=== PATIENT | female | born 1930 | race Caucasian/White ===

== ENCOUNTER 2016-12-03 13:30 | Inpatient (IN) | payer MEDICARE, OTHER ==
[~2016-12-03] VITALS: Ht 167.6 cm; Wt 59.3 kg
--- NOTE | ~2016-12-03 | HP ---
PATIENT'S NAME: TAVARES CLEMONS [facility] AGE: 86 Y [address] ROOM: [id number] [place], [place] [address] LOCATION: GPCU ADMIT DATE: 12/03/2016 History & Physical DISCHARGE DATE: FAMILY PHYSICIAN: PHYSICIAN, UNKNOWN ATTENDING PHYSICIAN: Shane Gaspar DATE OF SERVICE: CHIEF COMPLAINT: Near syncope in the setting of wide-complex tachycardia. HISTORY OF PRESENTING ILLNESS: This 86-year-old white female with known coronary artery disease, status post coronary artery bypass grafting in the distant past was transferred to [facility] from [place] after a near syncopal event, which occurred while she was at cardiac rehab. Briefly, she had actually been transported to the [facility] earlier this morning with an episode of epistaxis. She decided to call the ambulance because she had a syncopal event last fall under similar circumstances. On her arrival there, she was seen and evaluated by Dr. Oh and underwent nasal cautery with good results. She did not have any residual bleeding afterwards and subsequently went on to cardiac rehab. She states she engaged in some fairly intense exercise and did notice that she was "working hard." She did not feel particularly bad, but was asked to get off of the machine by an nurses assistant apparently. At some point, she had a near syncopal event, but she does not think that she "passed out." She does not actually recall the event, but does not think that it was significant. Subsequently, she was found to have cardiac dysrhythmia characterized by wide complex tachycardia. I do not have those tracings for review. She did not receive any specific intervention for it and it did subsequently resolve during her emergency room evaluation there. Dr. Feliz, coat hanger shaper machine operator was contacted, and it was requested that she be transferred here for definitive evaluation and management. On her arrival, she reports feeling "good." She indicates she does not feel that she needs to be hospitalized. She denies headaches, dizziness, or lightheadedness. She denies chest pain or significant shortness of breath. She has had some palpitations intermittently, but denies that now. She denies any abdominal pain. She has not eaten yet today and reports feeling mildly hungry. She has been stooling regularly, denies any urinary complaints, no dysuria, frequency, urgency, no hematuria, no numbness, tingling, or weakness in her extremities, or any other associated physical or constitutional complaints. ALLERGIES: PATIENT'S NAME: TAVARES CLEMONS [facility] AGE: 86 Y [address] ROOM: [id number] [place], [place] [address] [facility] AD[facility] DATE: 12/03/2016 History & Physical DISCHARGE DATE: FAMILY PHYSICIAN: PHYSICIAN, UNKNOWN ATTENDING PHYSICIAN: Shane Gaspar. ILLNESSES: 1. Coronary artery disease, status post coronary artery bypass grafting in 2007 in [place]. 2. Essential hypertension. 3. Hyperlipidemia. 4. Mild age-related cognitive impairment. 5. Chronic constipation. 6. Osteoporosis. 7. Recurrent epistaxis. CURRENT MEDICATIONS: 1. Aspirin 162 mg p.o. b.i.d. 2. Zebeta 5 mg a half-tab p.o. b.i.d. 3. Calcium carbonate 1200 mg p.o. daily. 4. Plavix 75 mg p.o. daily. 5. Aricept 10 mg p.o. daily. 6. Imdur 30 mg p.o. daily. 7. Centrum Silver daily. 8. Nitrostat p.r.n. 9. Protonix 40 mg p.o. daily. 10. Rosuvastatin 20 mg p.o. q.h.s. 11. PreserVision AREDS 1 cap p.o. daily. 12. Benefiber 1 packet p.o. daily. 13. Reclast infusion annually. FAMILY HISTORY: Significant for coronary artery disease in her father who at the age of 58. SOCIAL HISTORY: She is and lives in [place]. She is a nonsmoker and there is no significant history of alcohol use. REVIEW OF SYSTEMS: As per HPI. All other organ systems reviewed and are negative. OBJECTIVE: VITAL SIGNS: Temperature 98.1, pulse 72, respirations 20, blood pressure 119/112 (151/82), and O2 sat 94% on room air. Weight is 134 pounds. GENERAL: She is frail, not ill-appearing, very pleasant, cooperative, lying in bed, in no acute distress. She is alert and oriented x2 (not oriented to time). SKIN: Supple, pale, warm, and dry. No obvious rashes. PATIENT'S NAME: TAVARES CLEMONS [facility] AGE: 86 Y [address] ROOM: [id number] [place] [address] [facility] AD[facility] DATE: 12/03/2016 History & Physical DISCHARGE DATE: FAMILY PHYSICIAN: PHYSICIAN, UNKNOWN ATTENDING PHYSICIAN: Shane Gaspar HEENT: Otherwise, normocephalic. Sclerae nonicteric. Pupils equal, round, and reactive to light and accommodation. Extraocular movements appear intact. Nasal turbinates normal in appearance. There is some dried blood evident at the left nares. Oropharynx is clear. Mucous membranes are pink and moist. NECK: Supple. Plethoric. No masses. No thyromegaly. No JVD. CHEST: Chest wall is symmetrical. HEART: Regular with occasional extrasystoles. There is a grade 1 to 2/6 systolic ejection murmur. LUNGS: Diminished at the bases. No crackles or wheezes are heard. ABDOMEN: Soft, protuberant, nontender. Bowel sounds present. No mass or hepatosplenomegaly. AND RECTAL: Not done. EXTREMITIES: Display no significant clubbing, cyanosis, edema. NEUROLOGICAL: Mentation is little slowed. There are no focal deficits. LABORATORY AND X-RAY DATA: CBC showed a white blood cell count 9.4, hemoglobin is 13.7, hematocrit 43, and platelets 145. Magnesium was 2.3. An INR was 1.1. Chemistries revealed a BUN and creatinine of 16 and 0.67 respectively; sodium and potassium 142 and 3.9; chloride and CO2 are 99 and 23; calcium is 9.7; AST and ALT 38 and 29; bilirubin 0.88. A total CK was elevated at 159, troponin was less than 0.06, CK-MB 3.8. ASSESSMENT AND PLAN: 1. Near syncope. Suspect cardiogenic etiology. The patient will be admitted for observation (see below). We will monitor on telemetry and provide some supportive cares. We will keep her n.p.o. at least until Cardiology evaluation. 2. Wide-complex tachycardia. As described above, I do not have the strips for review, but this sounds like a stable ventricular tachycardia by Dr. Oh's description. I did discuss the case with Dr. Trini. We will monitor on telemetry and manage conservatively. We will hold off on any additional antiarrhythmic therapy, but plan to continue with beta-felipe therapy for now and monitor. She is otherwise asymptomatic. 3. Essential hypertension, appears to be adequately controlled, but a little labile. We will monitor the trend and make adjustments if necessary. 4. Coronary artery disease, status post coronary artery bypass grafting. Otherwise, clinically stable and asymptomatic. Plan to continue with medical therapy including aspirin, beta-felipe therapy, and statin therapy. 5. Epistaxis, status post cautery, resolved, plan to continue with aspirin and Plavix therapy for now and monitor. We will hold off on any additional anticoagulant therapy unless deemed necessary by Cardiology. 6. Osteoarthritis, generalized, encourage mobilization once she is deemed to be stable. No nonsteroidal antiinflammatory drug therapy. PATIENT'S NAME: TAVARES CLEMONS [facility] AGE: 86 Y [address] ROOM: [place] [address] [facility] ADMIT DATE: 12/03/2016 History & Physical DISCHARGE DATE: FAMILY PHYSICIAN: PHYSICIAN, UNKNOWN ATTENDING PHYSICIAN: Shane Gaspar 7. Constipation, chronic, we will continue her home regimen. 8. Deep venous thrombosis prophylaxis, we will utilize pneumatic compression devices, but hold off on heparin or Lovenox for now. MD BETHEL FOREMAN/radha /[id number] D: [id number] T: [id number] HISTORY & PHYSICAL
--- NOTE | ~2016-12-03 | DS ---
PATIENT'S NAME: TAVARES CLEMONS [facility] AGE: 86 Y [address] ROOM: [id number] [place], [place] [address] LOCATION: GPCU ADMIT DATE: 12/05/2016 Discharge Summary DISCHARGE DATE: 12/08/2016 FAMILY PHYSICIAN: Sunny Oh MD ATTENDING PHYSICIAN: Shane Gaspar FINAL DIAGNOSES: 1. Near syncope. 2. Acute cerebrovascular accident with aphasia, status post tPA infusion. 3. Wide-complex tachycardia. 4. Essential hypertension. 5. Coronary artery disease. 6. Epistaxis. 7. Chronic ascending aortic dissection. HISTORY OF PRESENT ILLNESS: Please see the history and physical dictated by Dr. Gaspar for details of admission. The patient had transferred from [place] after having a near-syncopal episode and was noted to have a wide-complex tachycardia associated with activity. LABORATORY DATA: On admission, sodium 141, discharge 142; potassium on admission 3.5, discharge 3.8; BUN on admission 14, discharge 14; creatinine on admission 0.7, discharge 0.7; magnesium at discharge was 2.3. Her cholesterol was 111, HDL 62, LDL 27, and triglycerides 112. Cardiac enzymes were normal. Pro-BNP was 1938. TSH was 4.5. Her CBC on the white blood cell count 9.5, hemoglobin 12.3, hematocrit 39, and platelet count 146. PTT 26, pro- time 10.7, INR 1.02. RADIOLOGY DATA: A coronary CT was done that showed that the lateral aspect of the root of the aorta measured 3.[address] scan of the head done on December [address] done for acute aphasia showed advanced white matter changes. Old left parietal infarct. No acute changes. There is a new focus of low density in the left frontal horn just peripheral to the head of the caudate nucleus. CT scan done on December 06 after tPA showed stable exam with no evidence of acute ischemia. CARDIOVASCULAR DATA: An echocardiogram done on admission showed her EF to be 55%. She had mild concentric left ventricular hypertrophy. She had mild aortic stenosis with a peak velocity of 2.5 m/sec. The valve area was calculated to be 1.17 cm2. The proximal ascending aortic appeared dilated. HOSPITAL COURSE: The patient was accepted in transfer from [place] after having a near syncope episode at the time of therapy then she was noted to have a wide-complex tachycardia. She was transferred to [facility]. There was a Cardiology consult obtained and echocardiogram was ordered. She PATIENT'S NAME: TAVARES CLEMONS [facility] AGE: 86 Y [address] ROOM: [id number] [place], [place] [address] LOCATION: GPCU ADMIT DATE: 12/05/2016 Discharge Summary DISCHARGE DATE: 12/08/2016 FAMILY PHYSICIAN: Sunny Oh MD ATTENDING PHYSICIAN: Shane Gaspar was seen in consultation by Dr. Feliz. Dr. Feliz felt that at this time that we did not need to pursue a heart catheterization and we could do medical management as the wide-complex tachycardia was associated with peak exercise. Adjustments were made in her medications as Zebeta was stopped and she was started on lisinopril. The echocardiogram did return with an area that appeared in the ascending order to be dilated. Decision was made to proceed with a cardiac CT for further evaluation. During this time, she did work with PT and OT. The cardiac CT did show an area that was concerning for either an aneurysm or chronic dissection. At that time, Dr. Maharaj was asked to see her. The morning of December 05 however she had an acute onset of aphasia. Rapid Response was called and then a stroke alert was called. A stat noncontrasted CT scan was obtained and Dr. Mendoza was consulted. He did feel that she was a candidate for tPA. Please see his consult for details. Stat laboratories obtained. The CT scan returned without any abnormality. She has moved to the ICU for tPA. Post tPA infusion, she did have epistaxis, she had a similar episode prior to admission. Dr. Lloyd Medrano was consulted. He did see her, he did cauterize her nose, and did pack it at the bedside. We did use Afrin. She has followed the routine post tPA orders and did quite well. At 24 hours, her swallowing was evaluated, it was felt she was stable to swallow. A CT scan was done, which did not show any evidence of hemorrhage. The therapist did work with her. Adjustments were made in her blood pressure. We did resume her Plavix at [address] Maharaj did see her in consultation regarding the chronic aortic dissection. He did explain the risks and benefits of the procedure. She opted to not proceed with the surgery. The morning of the , it was felt that she was stable for discharge and she is able to be discharged to home. DISCHARGE INSTRUCTIONS: Follow a cardiac diet. She is to follow up with Dr. Oh, her primary care provider in 3-5 days. She is to see Dr. Lloyd Medrano Ear, Nose, and Throat doctor on December 16 at 10:45 in the morning. She has no driving, she is not to blow her nose or pick her nose for a week. MEDICATIONS: 1. Crestor 20 mg at bedtime. 2. Imdur ER 30 mg daily. 3. Nitro 0.4 mg sublingual p.r.n. chest pain. She could repeat for a total of 3 doses. 4. Zoledronic acid/Reclast 5 mg/100 mL solution yearly. 5. Multivitamin daily. 6. Vitamin PreserVision 1 caplet daily. 7. Plavix 75 mg daily. 8. Protonix 40 mg daily. 9. Aricept 10 mg daily. 10. Colace 100 mg twice daily. 11. Lisinopril 5 mg daily. PATIENT'S NAME: TAVARES CLEMONS [facility] AGE: 86 Y [address] ROOM: [place] [address] LOCATION: GPCU ADMIT DATE: 12/05/2016 Discharge Summary DISCHARGE DATE: 12/08/2016 FAMILY PHYSICIAN: Sunny Oh MD ATTENDING PHYSICIAN: Shane Gaspar 12. Metoprolol 50 mg twice daily. 13. Bactroban topically to her nasal passage 3 times daily. 14. Nasal saline spray to each nostril every 2 hours as needed while awake. PROGNOSIS: Overall, prognosis at discharge is fair. This is discussed with the patient and the patient voiced understanding. A message has been left with her primary care provider to discuss this hospitalization. SEJAL WERNER MD LAW/modl /[id number] d: 12/09/16 0045 t: 12/09/16 1451, DISCHARGE SUMMARY
--- NOTE | ~2016-12-03 | CON ---
PATIENT'S NAME: DEONTE [facility] AGE: 86 Y [address] ROOM: [place] [address] LOCATION: GPCU ADMIT DATE: 12/05/2016 Consultation DISCHARGE DATE: FAMILY PHYSICIAN: VANCE ZALDIVAR MD ATTENDING PHYSICIAN: Shane Gaspar REFERRING PHYSICIAN: BROOKLYNN PACHECO MD HISTORY OF PRESENT ILLNESS: This pleasant 86-year-old lady is referred for rehab evaluation, admitted on 12/03/2016 with a near syncopal episode while she was on cardiac rehab. She has extensive history of cardiac or coronary artery disease, status post CABG in the distant past. She was for a short time aphasic, and was given blood thinner. She did improve afterwards; however, she developed a marked left nasal bleed. It is now packed and under control. PAST MEDICAL HISTORY: She has also 1. History of hypertension. 2. Dyslipidemia. 3. Osteoporosis. 4. Repeated epistaxis in the past. PHYSICAL EXAMINATION: NEUROLOGICAL: She is alert, and needs few cues to orient well. Speech is clear and not wet. She can see well. No headaches. She denied any double vision. Good bowel and bladder control. Neurologically intact. Voice is clear and not wet. She, however, has good tongue and soft palate movement and symmetrical. She can move all four. However, she is a little bit not so able to orient to time and person. She needs cuing to orient well. Deep tendon reflexes are present and equal throughout. VITAL SIGNS: Blood pressure was 147/73, temperature was 98.5, pulse was 62, and respirations were 14. She is 5 feet 6 inches and weighs 59.7 kg. MEDICATIONS: She is on the following medications. 1. Tylenol. 2. Labetalol hydrochloride. 3. Lisinopril. 4. Multivitamin. 5. Aricept. 6. NaCl 0.9%. 7. Protonix. 8. Imdur. [facility] AGE: 86 Y [address] ROOM: [place] [address] LOCATION: GPCU ADMIT DATE: 12/05/2016 Consultation DISCHARGE DATE: FAMILY PHYSICIAN: VANCE ZALDIVAR MD ATTENDING PHYSICIAN: Shane Gaspar 9. Crestor. 10. Nitroglycerin. 11. Alteplase. 12. Afrin. 13. Plavix. 14. Benefiber. ASSESSMENT AND PLAN: She is able at the present time, to communicate well. Her voice is clear and not wet. At the present time, I will initiate PT, OT, and Speech. I feel that she can go on an outpatient basis. I did advise her not to drive until she is evaluated. I will follow on her when she is discharged, in about maybe two weeks after discharge. Thank you for this referral. All the above was explained to her in detail and to her daughter. They verbalized understanding and agreement. RADHA DIAZ MD WMS/modl /[id number] d: 12/05/16 2213 t: 12/15/16 1539, CONSULTATION REPORT
--- NOTE | ~2016-12-03 | OR ---
PATIENT'S NAME: TAVARES CLEMONS [facility] AGE: 86 Y [address] ROOM: [id number] [place], [place] [address] LOCATION: GPCU ADMIT DATE: 12/05/2016 OR/Procedure Report DISCHARGE DATE: FAMILY PHYSICIAN: VANCE ZALDIVAR MD ATTENDING PHYSICIAN: Shane Gaspar SURGEON: Arin Sheridan MD AVIATION PROJECT MANAGER: DATE OF PROCEDURE: 12/05/2016 CT ANGIOGRAM REPORT INDICATIONS FOR STUDY: The patient with coronary artery disease, status post coronary artery bypass graft. Left internal mammary artery graft could not be engaged during cardiac catheterization. The patient presently admitted with episode of ventricular tachycardia. PROCEDURE: The procedure was described to the patient and informed consent was obtained. Calcium scoring was performed which showed total Agatston score of 5023. The Agatston score in left main coronary artery was 75, right coronary artery 2603, left anterior descending artery 1674 and circumflex coronary artery 651. Subsequently CT angiogram was performed. FINDINGS: The left main coronary artery arises normally from the left coronary cusp. It has mild calcification. No significant stenosis was noted. It gives rise to left anterior descending artery and left circumflex coronary arteries. Left anterior descending artery is a moderate-sized vessel. Diffuse heavy calcification was noted in the vessel. Left anterior descending artery appears to be occluded in the mid segment. Left circumflex coronary artery is a moderate-sized vessel and diffusely calcified. It appears occluded in the mid segment. The right coronary artery is also heavily calcified and appears occluded in the mid segment. Saphenous vein graft is noted originating from the aorta to the posterior descending artery. It is ectatic. The left internal mammary graft appears to be patent and appears to be attached to the diagonal branch. The proximal part in the origin of left internal mammary artery graft from the subclavian artery was not imaged and hence could not be commented on. Also a saccular aneurysm is noted near the aortic root measuring 2.1 x 3.8 cm and the diameter of the neck measures about 9.3 mm. It has a filling defect likely due to thrombus. IMPRESSION: 1. 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 2. Three-vessel coronary artery disease with calcified coronary arteries and occlusion in the mid left anterior descending artery, mid circumflex coronary and mid right coronary artery. PATIENT'S NAME: TAVARES CLEMONS [facility] AGE: 86 Y [address] ROOM: [place] [address] [facility]: 12/05/2016 OR/Procedure Report DISCHARGE DATE: FAMILY PHYSICIAN: VANCE ZALDIVAR MD ATTENDING PHYSICIAN: Shane Gaspar 3. Patent saphenous vein graft to the posterior descending artery. The graft is ectatic. 4. Left intermammary artery graft to the diagonal branch appears patent. The origin in the subclavian artery and the proximal segment was not visualized. Clinical correlation is recommended. The findings were discussed with Dr. Bonner and Dr. Maharaj. MD DENIA STEINBERG/modl /[id number] d: 12/05/162230 t: 12/24/161940, OPERATIVE SUMMARY
--- NOTE | ~2016-12-03 | CON ---
[facility]GE[facility] 86 Y [address] ROOM: [place] [address] LOCATION: GICU ADMIT DATE: 12/05/2016 Consultation DISCHARGE DATE: FAMILY PHYSICIAN: VANCE OH MD ATTENDING PHYSICIAN: Shane Gaspar REFERRING PHYSICIAN: BROOKLYNN PACHECO MD REFERRING PHYSICIAN: Nena Bonner MD. CHIEF COMPLAINT: Epistaxis. HISTORY OF PRESENT ILLNESS: The patient is a pleasant 86-year-old female, who was admitted with a history of coronary artery disease and diagnosis of wide-complex tachycardia. She unfortunately suffered a stroke and was given tPA today, and thereafter began to have nosebleeds from the left side, for which ENT is consulted. The patient states that she has had a history of recurrent nosebleeds from the left side for quite a period time and had this cauterized both by ENT and her primary care multiple times including most recently 2 days ago. She has never had any issues on the right. She has no other ENT complaints at this time. PAST MEDICAL HISTORY: Coronary artery disease, essential hypertension, hyperlipidemia, chronic constipation, osteoporosis, recurrent epistaxis. CURRENT MEDICATIONS: At home, personally reviewed and available in the chart as were her inpatient medications. FAMILY HISTORY: Negative for chronic ear, nose, and throat conditions. SOCIAL HISTORY: She is , nonsmoker, and she does not use significant amounts of alcohol. REVIEW OF SYSTEMS: A 10-point review of systems was negative except as per the HPI. PHYSICAL EXAMINATION: VITAL SIGNS: Temperature 97.9, pulse 60, respirations 14, blood pressure 164/88, 94% on 2 L of nasal cannula oxygen. GENERAL: On exam, she is well appearing, no acute distress. Alert and oriented. Somewhat forgetful. Mood and affect are otherwise appropriate. PATIENT'S NAME: DEONTE [facility] AGE: 86 Y [address] ROOM: [place] [address] LOCATION: [facility] ADMIT DATE: 12/05/2016 Consultation DISCHARGE DATE: FAMILY PHYSICIAN: VANCE OH MD ATTENDING PHYSICIAN: Shane Gaspar EARS: Auditory canals are clear. TMs unremarkable. NOSE: External nose unremarkable. Right nasal cavity is clean without epistaxis. On the left side, there is some clotted blood, which after sucking this out reveals an area of riccardo venous type bleeding from a focal spot on the anterior septum. There is evidence of recent cautery around this. There are no other areas of epistaxis apparent in the nose. ORAL CAVITY: Mucous membranes moist. Tongue midline and mobile. Oropharynx shows some blood staining. NECK: No palpable lymphadenopathy or masses. Thyroid is not palpable. CONTROL OF EPISTAXIS: After discussing the plan with the patient and she provided informed consent, Afrin was applied topically to the left nasal septum, and thereafter a Merocel sponge was cut to shape and placed into the left nasal cavity and inflated with Afrin. This provided excellent control of her epistaxis without bleeding through. ASSESSMENT: Epistaxis, left side, status post tPA use. PLAN: We will leave the pack in place through the weekend and remove this on Thursday. We did discuss prior to pack placement, the use of topical medications versus cauterization. She elected for the pack placement. She was given nasal saline. Continued on her Afrin and humidification we added to her oxygen. MD GIO DONALD/gretchenl /[id number] CC: Vance Oh MD d: 12/05/16 2336 t: 12/18/16 0720, CONSULTATION REPORT
--- NOTE | ~2016-12-03 | CON ---
PATIENT'S NAME: DEONTE [facility] AGE: 86 Y [address] ROOM: [address] [place] [id number] LOCATION: GPCU ADMIT DATE: 12/03/2016 Consultation DISCHARGE DATE: FAMILY PHYSICIAN: PHYSICIAN, UNKNOWN ATTENDING PHYSICIAN: Shane Gaspar DATE OF CONSULTATION: 12/03/2016 REFERRING PHYSICIAN: ALMA PACHECO MD REFERRING PHYSICIAN: Shane Gaspar MD REASON FOR CARDIOLOGY CONSULT: Asymptomatic ventricular tachycardia. HISTORY OF PRESENT ILLNESS: This is an 86-year-old female who was exercising with cardiac rehab today when she developed a wide-complex tachycardia on telemetry during the end of her exercise regimen. She was asymptomatic other than her already complaints of shortness of breath which is normal with her exercise. She denied chest pain, dizziness, presyncope, syncope, nausea, vomiting, or palpitations. Overall, she appears to be in no acute distress, and she states she is "unsure if anything is wrong with her." She has a previous history which includes coronary artery disease with coronary artery bypass grafting as well as hypertension and hyperlipidemia. At the time of this consult, she is resting comfortably in bed. PAST MEDICAL HISTORY: 1. Coronary artery disease with a history of coronary artery bypass grafting in 2007. 2. Hypertension. 3. Hyperlipidemia. 4. Osteoporosis. 5. Mild cognitive impairment. PAST SURGICAL HISTORY: 1. Coronary artery bypass grafting in 2007. 2. Left tibial plateau fracture. 3. Left hip hemiarthroplasty. FAMILY HISTORY: The patient's father due to a myocardial infarction. Her mother due to a stroke. She does have a brother with a history of cardiac disease. PATIENT'S NAME: DEONTE [facility] AGE: 86 Y [address] ROOM: [id number] [place], [place] [address] LOCATION: GPCU ADMIT DATE: 12/03/2016 Consultation DISCHARGE DATE: FAMILY PHYSICIAN: PHYSICIAN, UNKNOWN ATTENDING PHYSICIAN: Shane Gaspar SOCIAL HISTORY: The patient denies ever using tobacco. She also denies alcohol or illicit drug use. CURRENT MEDICATIONS: 1. Crestor 20 mg p.o. daily in the evening. 2. Zebeta 2.5 mg p.o. twice daily. MEDICATION ALLERGIES: Meclizine. REVIEW OF SYSTEMS: Pertinent positive review of systems listed in the HPI. All other review of systems evaluated and negative. PHYSICAL EXAMINATION: VITAL SIGNS: Temperature 97.9, pulse 65, respirations 20, blood pressure 180/86, and O2 saturation 92% on 2 L nasal cannula. The patient weighs 61.2 kg. SKIN: [place], warm, and dry. EYES: Sclerae are clear. No xanthelasma. ENT: Oral mucosa is pink and moist. No jugular venous distention or carotid bruits. CHEST: Respirations are even and unlabored. Lung sounds are clear to auscultation. HEART: Regular rate and rhythm. Does have the presence of a 2/6 systolic murmur. ABDOMEN: Soft and nontender. MUSCULOSKELETAL: Gait is normal. EXTREMITIES: Peripheral pulses palpable. No clubbing, cyanosis, or edema. PSYCHIATRIC: Alert and oriented. Mood and affect are appropriate. IMPRESSION AND PLAN: Per Dr. Alma Pacheco. 1. Asymptomatic ventricular tachycardia. Once again, this was in the setting of cardiac rehab. She has no current signs and symptoms of acute coronary syndrome or decompensation. We will check an echocardiogram to fully evaluate ejection fraction as well as look for wall motion and valvular abnormalities. We will also check an EKG and review BMP and magnesium for electrolyte values. 2. Coronary artery disease with a history of coronary artery bypass grafting. Once again, no complaints of angina. Recent cath by levi Aguirre: medical therapy. 3. Hypertension. 4. Hyperlipidemia. Again, this is an 86-year-old female who had an episode of ventricular PATIENT'S NAME: TAVARES CLEMONS Cosmo [facility] AGE: 86 Y [address] ROOM: [id number] [place] [id number] [facility] ADMIT DATE: 12/03/2016 Consultation DISCHARGE DATE: FAMILY PHYSICIAN: PHYSICIAN, UNKNOWN ATTENDING PHYSICIAN: Shane Gaspar tachycardia during the peak and end portions of her cardiac rehab exercise. She had no chest pain, shortness of breath, palpitations, or dizziness. Her EKG shows sinus rhythm with a left bundle-branch block, and her electrolytes are stable. We will review her echocardiogram, but overall we see no symptoms of acute CHF decompensation or new angina symptoms. We will continue to monitor her on telemetry and rule out acute coronary syndrome. We will continue to monitor, evaluate, and treat as appropriate. Thank you for this consult. Thank you for allowing [facility] to interact in the care of this patient. YORDAN VILLAFANA APRN FOR MD BERTRAND LORENZO/radha /[id number] d: 12/04/16 1128 t: 12/10/16 1704, CONSULTATION REPORT
--- NOTE | ~2016-12-03 | ENPV ---
Carotid Duplex Study Demographics Patient Name TAVARES CLEMONS Date of Study 12/05/2016 Patient Number [id number] Gender Female Date of 1930 Age 86 Visit Number [id number] Height 66 Accession Number [id number] Weight 134 Referring Chasity Albert MD Physician Adriano Knott MD Physician Physician Ordering Physician Ha Castillo MD Surfacer Operator Antoni Horton [facility] Conclusions Summary Prior exam 06/30/16: MCKENZIE 1-39% LICA 1-39% The right internal carotid artery has mild, 1-39%, plaque and stenosis. The left internal carotid artery has mild, 1-39%, plaque and stenosis. Unable to properly assess left carotid bulb due to acoustic shadowing from calcified plaque. The right vertebral artery has flow consistent with an incomplete steal suggestive of proximal right subclavian artery stenosis. The right vertebral artery is present with antegrade flow. The left vertebral artery is present with antegrade flow. Procedure Type of Study: Cerebral:Carotid, Carotid Doppler Bilateral. Indications for Study:Stroke. Additional Indications:Post TPA Appropriate Use Criteria:6 Allergies - No known allergies. Blood Pressure:Right arm 150/80 mmHg. Patient Status:Routine. Study Location:Inpatient Portable. Technical Quality:Good visualization. Velocities are measured in cm/s ; Diameters are measured in cm Carotid Right Measurements Carotid Left Measurements + +--------+--------+ + + + +--------+ --------+ + + !Location !PSV !EDV !Angle !%Stenosis ! !Location !PSV ! EDV !Angle !%Stenosis ! + +--------+--------+ + + + +--------+ --------+ + + !Prox CCA !88 !18 !60 ! ! !Prox CCA !141 ! 21 !54 ! ! + +--------+--------+ + + + +--------+ --------+ + + !Dist CCA !63 !21 !60 ! ! !Dist CCA !58 ! 22 !60 ! ! + +--------+--------+ + + + +--------+ --------+ + + !Prox ICA !82 !26 !60 ! ! !Prox ICA !59 ! 15 !60 ! ! + +--------+--------+ + + + +--------+ --------+ + + !Dist ICA !82 !25 !50 ! ! !Dist ICA !74 ! 27 !40 ! ! + +--------+--------+ + + + +--------+ --------+ + + !Prox ECA !84 ! !60 ! ! !Prox ECA !103 ! !60 ! ! + +--------+--------+ + + + +--------+ --------+ + + !Vertebral !28 ! !60 ! ! !Vertebral !106 ! !64 ! ! + +--------+--------+ + + + +--------+ --------+ + + !Subclavian !108 ! ! ! ! !Subclavian !140 ! ! ! ! + +--------+--------+ + + + +--------+ --------+ + + - There is antegrade vertebral flow noted on the right side. - There is antegrade verte bral flow noted on the left side. - Add'l Measurements:ICAPSV/CCAPSV 0.94.ICAEDV/CCAEDV 1.43. - Add'l Measurements:ICAPS V/CCAPSV 0.53.ICAEDV/CCAEDV 1.27. Impressions Right Impression There is a mild amount of smooth calcified plaque in the right internal carotid artery . Left Impression There is a moderate degree of irregular calcified plaque in the left internal carotid artery . Signature dtt: JUICE NOWAK dtd: 12/05/16 1055 Physician Self Edit
--- NOTE | ~2016-12-03 | CON ---
PATIENT'S NAME: TAVARES CASTANON [facility] AGE: 86 Y [address] ROOM: [address] [place], [place] [address] LOCATION: GICU ADMIT DATE: 12/05/2016 Consultation DISCHARGE DATE: FAMILY PHYSICIAN: VANCE ZALDIVAR MD ATTENDING PHYSICIAN: Shane Gaspar DATE OF CONSULTATION: 12/05/2016 REFERRING PHYSICIAN: BROOKLYNN PACHECO MD HISTORY OF PRESENT ILLNESS: The patient was seen on neurologic consultation as a Stroke Code at 8:55 on 12/05/2016. The evaluation and treatment is a Critical Care assessment and treatment with a total time spent in treatment for acute stroke of 60 mins. I was called by Dr. Bonner, the hospitalist, to assess Ms. Castanon, who is an 86-year-old female patient, who came to our hospital two days ago to be assessed for possibility of asymptomatic tachycardia. The patient came in from rehab which she had usually done nearly 30 some odd times. During her rehab on her bicycle training, she developed a wide-complex tachycardia, and they took her off the bicycle. She actually seemed to be somewhat asymptomatic, but did complain about some mild shortness of breath. There were no other symptoms at the time. The patient does have a known history of coronary artery disease, hypertension, and hyperlipidemia. She is status post coronary artery bypass graft in 2007. Neurology was called this morning to assess the patient who came out of her shower, and she suddenly had some difficulty with word finding. Her nurses came in to assess her and noted that she could not get certain words out, but she was still walking around and did not have any weakness noted. A Stroke Code was called based upon her having a right facial droop, some slurring of speech, as well as having aphasia. At times, she was unable to name objects and parts of objects. Her family members were in the room and were saying that "she is acting very different." They noted that she also was unable to name certain objects and was just almost having a speech arrest at times. She was not anxious, and she was otherwise alert and oriented to person, place, and time. Her slurring of speech and word finding were waxing and waning during the whole time I assessed the patient at 8:54 a.m. Based upon my assessment of the patient, she was a candidate for tPA based upon these new acute neurologic symptoms. No prior recent surgery. The only relative contraindication would be her age, but she was otherwise healthy and active. She was maintained on Plavix. PAST MEDICAL HISTORY: Osteoporosis, hyperlipidemia, hypertension, and coronary artery disease. PAST SURGICAL HISTORY: Included the coronary artery bypass graft in 2007, a left hip repair, and a left tibial plateau fracture. FAMILY HISTORY: PATIENT'S NAME: TAVARES CASTANON [facility] AGE: 86 Y [address] ROOM: [address] [place], [place] [address] LOCATION: [facility] ADMIT DATE: 12/05/2016 Consultation DISCHARGE DATE: FAMILY PHYSICIAN: VANCE ZALDIVAR MD ATTENDING PHYSICIAN: Shane Gaspar Father had a myocardial infarction. Mother had a prior stroke. There was some cardiac disease also in family members. SOCIAL HISTORY: She has no alcohol use or illicit drug use. MEDICATIONS: Her medications at home included: 1. Crestor 20 mg daily. 2. Zebeta 2.5 mg twice a day. ALLERGIES: SHE HAS A MEDICATION ALLERGY TO MECLIZINE. REVIEW OF SYSTEMS: The patient is an elderly female who is quite active. She goes to cardiac rehab. She came to the hospital for some mild shortness of breath in the setting of a possible ventricular tachycardia or supraventricular tachycardia, currently being worked up from a cardiac standpoint here. She did well during the past 24 hours; however, this morning, she developed aphasia with a right facial droop. No noted weakness. The patient received tPA at 9:33 a.m. this morning and was taken to the ICU for treatment and observation over the next 24 hours. PHYSICAL EXAMINATION: VITAL SIGNS: Pulse of 65 and regular, respiration rate 16, blood pressure 168/86, and temperature is afebrile. NEUROLOGIC: Cranial Nerves: There is flattening of the right nasolabial fold that is improved post tPA. Slurring of speech also seems to be improved. There is otherwise normal flexion and extension of the neck. I do not appreciate any pronator drift. The power is otherwise 5/5 in the upper and lower extremities. Sensory exam is intact. Checking her coordination on [id number], she is able to do this normally. Rapid alternating hand movements also seem to be fine. Naming of objects: She has difficulty in naming a cellphone. She cannot find words for this. Also, naming part of a pen, she cannot get pen point, and now she is able, post tPA, to respond to all questionings and naming of objects, and right and left discriminations are all improved at this point. IMPRESSION: The patient received tPA at this juncture for new onset of right facial droop, slurring of speech, and aphasia. She seems to be doing well, though we will watch her closely for any evidence for bleed. The medication will rapidly be out of her system within an hour or two. We will hold her Plavix dose for 24 hours. She would certainly be able to proceed with restarting antiplatelet PATIENT'S NAME: TAVARES CASTANON [facility] AGE: 86 Y [address] ROOM: [place] [address] LOCATION: [facility] ADMIT DATE: 12/05/2016 Consultation DISCHARGE DATE: FAMILY PHYSICIAN: VANCE ZALDIVAR MD ATTENDING PHYSICIAN: Shane Gaspar. A CAT scan of the brain or MRI may be done within 24 hours hopefully with the patient's symptoms improving. Continue to follow along with the patient here in the ICU. RAFI DAMON MD JRM/modl /[id number] d: 12/05/161420 t: 12/14/162201, CONSULTATION REPORT
--- NOTE | ~2016-12-03 | ECHO ---
Transthoracic Echocardiography Report (TTE) Demographics Patient Name TAVARES CLEMONS Date of Study 12/04/2016 Patient Number [id number] Visit Number [id number] Date of 1930 Room Number G6328 Gender Female Number Age 86 year(s) Referring Marycruz Wade Shoe Lining Fitter Edilberto Mckeon RDCS, Physician RVT Physician Interpreting Fatimah Hinkle Fire Hose Curer Physician Supervising Ordering Marycruz Wade APRN MD/MLP Physician Nurse Stress Information Technology Associate Conclusions Contractility Score Summary Normal Left Ventricular contractility was noted. Summary The estimated left ventricular ejection fraction is 55%. Mild concentric left ventricular hypertrophy. Sigmoid septum measuring 1.74 cm. Mildly dilated right ventricle. The left atrium is severely dilated by LA volume index measurement. The right atrium is mildly dilated. There is mild aortic stenosis by the Continuity Equation. The peak velocity is 2.15 m/s, the mean gradient is 11 mmHg, and the valve area based on the continuity equation is 1.17 cm2. The aortic valve is moderately calcified. The proximal ascending aorta appears severely dilated. The maximum diameter measures 4.8 cm. Mild tricuspid regurgitation by color Doppler with estimated RVSP of 33 mm hg Procedure Type of Study TTE procedure:2D Echocardiogram. Procedure Date Date: 12/04/2016 Start: 07:15 AM Study Location: Inpatient Portable Technical Quality: Adequate visualization Indications:Ventricular Tachycardia. Appropriate Use Criteria: 9 Patient Status: Routine HR: 55 bpm BP: 160/90 mmHg Allergies - No known allergies. M-Mode/2D Measurements LV Diastolic Dimension: 4.27 cm LV Systolic Dimension: 2.25 cm LV Septum Diastolic: 1.07 cm LV PW Diastolic: 1.11 cm AO Root Dimension: 3.5 cm Cardiac Output: 3.42 l/min AV Cusp Separation: 1.3 cm RV Diastolic Dimension: 3.07 cm LA volume: 94 ml LVOT: 2 cm RV Base: 4.33 cm LVOT VTI: 19.8 cm RV Mid: 3.07 cm LV Stroke volume: 62.17 ml TAPSE: 1.77 cm TDI-S': 8.77 cm/s Doppler Measurements AV Peak Velocity: 2.15 m/s MV Peak E-Wave: 0.67 m/s AV Peak Gradient: 18.49 mmHg MV Peak A-Wave: 0.42 m/s AV Mean Gradient: 11 mmHg MV E/A Ratio: 1.58 LVOT Peak Velocity: 0.84 m/s MV P1/2t: 76 msec TR Gradient:29.81 mmHg PV Peak Velocity: 1.25 m/s Estimated RAP:5 mmHg PV Peak Gradient: 6.25 mmHg Estimated RVSP: 35 mmHg Estimated PASP: 34.81 mmHg E' Septal Velocity: 0.03 m/s A' Septal Velocity: 0.05 m/s E' Lateral Velocity: 0.11 m/s A' Lateral Velocity: 0.04 m/s Findings Left Ventricle Mild concentric left ventricular hypertrophy. Sigmoid septum measuring 1.74 cm. Right Ventricle Mildly dilated right ventricle. Mildly reduced right ventricular function. Left Atrium The left atrium is severely dilated by LA volume index measurement. Right Atrium The right atrium is mildly dilated. Mitral Valve Moderate mitral annular calcification. Mild-moderate mitral regurgitation by color Doppler. Mild thickening of the mitral valve leaflets. Aortic Valve The aortic valve is moderately sclerotic. There is mild aortic stenosis by the Continuity Equation. The peak velocity is 2.15 m/s, the mean gradient is 11 mmHg, and the valve area based on the continuity equation is 1.17 cm2. The aortic valve is moderately calcified. Tricuspid Valve Mild tricuspid regurgitation by color Doppler with estimated RVSP of 33 mm hg Pulmonic Valve Normal pulmonic valve structure and function. Mild pulmonic valve regurgitation by color Doppler. Pericardial Effusion No evidence of pericardial effusion. Miscellaneous The ascending aorta appears severely dilated. The maximum diameter measures 4.8 cm. The aortic root appears mildly dilated. The maximum diameter measures 3.5 cm. Pleural Effusion No evidence of pleural effusion. Contractility Score LV regional wall motion:(0-Non visualized 1-Normal 2-Hypokinesis 3-Akinesis 4-Dyskinesis 5-Aneurysm) Signature dtt: LUIS MOYER dtd: 12/04/16 0715 Physician Self Edit
[~2016-12-03 13:30] MED LIST: ASPIRIN (CHILDR81 MG PO; ASPIRIN LO-DOSE81 MG PO; BENEFIBER1 EAC1 PO; CALCIUM 600 +1 EAC3 PO; CENTRUM SILVER1 EAC1 PO; CENTRUM SILVER1 TAB PO; COZAAR25 MG PO; CRESTOR20 MG PO; IMDUR30 MG PO; NITROSTAT0.4 MG SL; OSCAL + D500 MG PO; PLAVIX75 MG PO; PRESERVISION A1 EACH PO; PROTONIX40 MG PO; RECLAST 55 MG/100 M IV; TOPROL XL 5050 MG PO; ZEBETA5 MG PO
[2016-12-03] MEDS ORDERED: ARICEPT10 MG PO (15:17)
[2016-12-03] MEDS ORDERED: CALCIUM CARBON600 MG PO (15:17)
[2016-12-03 16:03] LABS: ANION GAP 10.5 (10.0-19.0); BLOOD UREA NITROGEN 14 mg/dL (6-24); CALCIUM 8.8 mg/dL (8.5-10.5); CHLORIDE 103 mMol/L (96-110); CO2 31 mMol/L (22-32); CREATININE 0.7 mg/dL (0.5-1.1); ESTIMATED GFR (MDRD EQUATION) > 60; MAGNESIUM 2.5 mg/dL (1.8-2.6); POTASSIUM 3.5 mMol/L (3.7-5.1); SODIUM 141 mMol/L (135-145)
--- NOTE | 2016-12-03 16:13 | NUR ---
86 Y/O FEMALE ADMITTED FOR WIDE COMPLEX TACHYCARDIA. BROUGHT HERE FROM [place] WHERE SHE WAS DOING CARDIAC REHAB & TOLD TO STOP. PT DENIED AN SOB OR CP. PT HAS NOT EATEN TO AND HAD HER BLOODY NOSE CAUTERIZED IN THE DR OFFICE THIS MORNING. PT IS A&OX3, ABLE TO AMBULATE HANGING ON TO SOMEONE. MEDICAL & SURGICAL HISTORY - CABG, LT TIBIAL PLATEAU FX & ORIF, LT HIP HEMIARTHROPLASTY. HTN, ME, HIGH CHOL, ANGINA, CAD, SYNCOPE, V TACH, OSTEOPORSIS, ARTHRITIS, STRESS INCONT, HYPOKALEMIA. ADM EDUCATION COMPLETED AND REPORT GIVEN TO PT PRIMARY CARE PROVIDER JONEL MCCABE
--- NOTE | 2016-12-03 19:01 | NUR ---
Significant Event: ADMITTED FOR OBSERVATION. WIDE COMPLEX TACHYCARDIA. DENIES PAIN. A/O X3. BEDREST. IV NS TKO. ECHO IN AM. Follow up:
[2016-12-03 21:56] LABS: CPK 130 IU/L (21-215)
[2016-12-04 03:49] LABS: CPK 128 IU/L (21-215)
--- NOTE | 2016-12-04 05:16 | NUR ---
Significant Event: A/0 X 3, CURRENTLY ON BEDREST. SBP'S 150-160'S, HR UPPER 50'S TO 70'S. ALL OTHER VSS ON RA, AFEBRILE. LAST 2 SETS CARDIAC ENZYMES HAVE BEEN NEGATIVE. HAS DENIED PAIN AND HAS HAD NO COMPLICATIONS DURING THE EVENING. ECHO THIS AM. Follow up:
--- NOTE | 2016-12-04 18:58 | NUR ---
Significant Event:VSS AFEBRILE. HR'S 60'S TO 70'S. BP'S 99-180'S. ON RA IN THE 90'S. ECHO DONE THIS AM AND THEN CT OF CHEST HAD DILATED AORTA. DR RASHID CONSULT. Follow up:
--- NOTE | 2016-12-05 05:31 | NUR ---
Significant Event: HR 50-60S. SBP FLUCTUATING 110-160S. DESATS ON RA AT NIGHT. 2L PLACED NC >90%. METOPROLOL STARTED PER . PT DENIES PAIN,SOB, DIZZINESS. UP W/FWW TO BATHROOM. DR. RASHID CONSULT. Follow up:DR. RASHID TO SEE WITH FAMILY PRESENT
[2016-12-05 09:34] LABS: BASOPHIL # 0.1 K/uL (0.0-0.2); BASOPHIL % 0.8 %; EOSINOPHIL # 0.2 K/uL (0.0-0.5); EOSINOPHIL % 2.4 %; HEMOGLOBIN 12.3 g/dL (10.0-15.0); IMMATURE GRANULOCYTE % 0.2 %; LYMPHOCYTE # 2.8 K/uL (0.8-4.0); LYMPHOCYTE % 29.1 %; MCH 28.1 pg (27.0-34.0); MCHC 31.5 gm/dL (32.0-36.5); MCV 89.2 fl (83.0-98.0); MONOCYTE # 0.7 K/uL (0.0-1.0); MONOCYTE % 6.8 %; MPV 10.6 fl (9.4-12.4); NEUTROPHIL # (ANC) 5.8 K/uL (1.8-7.8); NEUTROPHIL % 60.7 %; NRBC % 0 /100WBC (0-0.00); PLATELET COUNT 146 K/uL (150-450); RBC 4.37 M/uL (3.00-5.00); RDW-CV 14.4 % (11.9-14.6); WBC 9.5 K/uL (4.0-11.0)
[2016-12-05 09:45] LABS: INR - (THERAPEUTIC) 1.02 (0.92-1.07); PROTIME 10.7 SECONDS (9.8-11.4); PTT 26 SECONDS (25-32)
[2016-12-05 09:48] LABS: ALBUMIN 3.4 gm/dL (3.5-5.0); ANION GAP 9.4 (10.0-19.0); BLOOD UREA NITROGEN 17 mg/dL (6-24); CALCIUM 7.7 mg/dL (8.5-10.5); CHLORIDE 108 mMol/L (96-110); CO2 29 mMol/L (22-32); CREATININE 0.8 mg/dL (0.5-1.1); ESTIMATED GFR (MDRD EQUATION) > 60; MAGNESIUM 2.2 mg/dL (1.8-2.6); PHOSPHORUS 2.8 mg/dL (2.5-4.9); POTASSIUM 3.4 mMol/L (3.7-5.1); SODIUM 143 mMol/L (135-145)
--- NOTE | 2016-12-05 10:55 | NUR ---
CONSULT RECEIVED PER ROUTINE STROKE ORDERS. WILL PROVIDE DIET ED APPROPRIATE PRIOR TO D/C.
--- NOTE | 2016-12-05 11:19 | NUR ---
AT AROUND 0842 RN WAS NOTIFIED SOMETHING WAS GOING ON IN PATIENT'S ROOM.RN WENT TO CHECK ON PATIENT, AND FOUND PATIENT APHASIC. PATIENT WAS ABLE TO TALK, BUT UNABLE TO FIND WORDS AT TIMES, AND FRUSTRUATED, AND ANXIOUS.DAUGHTER AT THE BEDSIDE, AND STATED"PATIENT ALL THE SUDDEN STOPPED TALKING, AND COULDN'T TALK AT ALL".RAPID RESPONSE TEAM, CALLED AT 0845. ARRIVED IN ROOM. STROKE ALERT CALLED AT 0855.PT'S BP-172/90. PATIENT WAS ABLE TO FOLLOW COMMANDS, AND ANSWER TO ORIENTATION QUESTIONS. IN THE ROOM, AND ORDERED PATIENT TO BE TRANSFERED TO ICU FOR TPA.PATIENT DOWN TO CT PRIOR TO TRANSFER TO ICU. REPORT GIVEN TO DONNY, PILATES INSTRUCTOR.
--- NOTE | 2016-12-05 16:15 | NUR ---
SIGNIFICANT EVENT: PATIENT ALERT, ORIENTED X3. PATIENT OPENS EYES SPONTANEOUSLY AND TO VOICE. PUPILS EQUAL AND REACTIVE. PATIENT DENIES ANY NUMBNESS, TINGLING, OR PAIN. PATIENT DENIES HEADACHES OR BLURRED VISION. SPEECH IS SLOW, CLEAR. NO S/S OF APHASIA, EXPRESSIVE OR RECEPTIVE. SLIGHT FACIAL DROOP ON L) SIDE OF MOUTH. PATIENT MOVES ALL 4 EXTREMITIES SPONTANEOUSLY AND TO COMMANDS. EQUAL STENGTH THROUGHOUT. AT TIEMS L) UPPER EXTREMITY HAND GRASP SLIGHTLY WEAKER THAN R). NO DRIFTING OF ANY OF EXTREMITIES. NHISS OF 0. PATIENT HAS BEEN IN SINUS RHYTHM, HR 50-60S, GAYATHRI AT TIMES. PULSES PALPABLE THROUGHOUT. BP STABLE PER DR DAMON AND DR MOYER'S PARAMETERS. SBP 140-160S, MAP>65. AFEBRILE. TPA GIVEN AT 0933 THIS AM IN ICU, POST TPA ADMINISTRATION, NASAL BLEED OCCURED. DR DUFF ENT MD PACKED L) NARE AT BEDSIDE. PATIENT IS ON 2 L NASAL CANNULA TO KEEP SATS >94%. BOWEL SOUNDS ACTIVE, NO BM. NPO EXCEPT FOR SIPS OF WATER WITH PILLS. ADEQUATE URINE OUTPUT. NO NEW SKIN ISSUES NOTED. CONTINUE TO MONITOR AND REPORT AND CARDIA OR NEURO CHANGES
--- NOTE | 2016-12-06 04:19 | NUR ---
Significant Event: PATIENT ALERT AND ORIENTED, FOLLOWS ALL COMMANDS. DENIES NUMBNESS/TINGLING/PAIN. CONTINUES ON BEDREST. NIHSS 1. SR THROUGHOUT SHIFT. SBP 150-170'S. AFEBRILE. CONTINUES ON 2L PER NASAL CANNULA WITH HUMIDITY TITRATING FOR SPO2 >94%. OCCASSIONAL NONPRODUCTIVE COUGH. NASAL PACKING CONTINUES TO LEFT NARE. SCHEDULED OCEAN NASAL SPRAY, AFRIN, BACTROBAN. VOID PER BEDPAN WITH GOOD UOP. NO BM. CONTINUES TO BE NPO EXCEPT FOR PILLS WITH SIPS. PIV X1 TO LEFT FOREARM, NS AT 150ML/HR. Follow up: CONTINUE TO MONITOR POST TPA
[2016-12-06 08:32] LABS: ANION GAP 10.5 (10.0-19.0); CALCIUM 7.7 mg/dL (8.5-10.5); CHLORIDE 109 mMol/L (96-110); CO2 27 mMol/L (22-32); CREATININE 0.6 mg/dL (0.5-1.1); ESTIMATED GFR (MDRD EQUATION) > 60; MAGNESIUM 2.2 mg/dL (1.8-2.6); POTASSIUM 3.5 mMol/L (3.7-5.1); SODIUM 143 mMol/L (135-145)
[2016-12-06 08:54] LABS: BLOOD UREA NITROGEN 8 mg/dL (6-24)
--- NOTE | 2016-12-06 14:20 | NUR ---
Occupational therapy order received to initiate OT treatment 24 hours post TPA. Patient's chart reviewed and initial evaluation attempted however patient busy with other consults on both attempts. Will attempt next therapy day as able. Magalys Vernon OTR/Tavo 12/06/16
[2016-12-07 04:17] LABS: HEMATOCRIT 36.2 % (30.0-46.0); HEMOGLOBIN 11.5 g/dL (10.0-15.0)
[2016-12-07 04:33] LABS: ANION GAP 11.3 (10.0-19.0); BLOOD UREA NITROGEN 10 mg/dL (6-24); CALCIUM 8.2 mg/dL (8.5-10.5); CHLORIDE 107 mMol/L (96-110); CO2 28 mMol/L (22-32); CREATININE 0.6 mg/dL (0.5-1.1); ESTIMATED GFR (MDRD EQUATION) > 60; POTASSIUM 3.3 mMol/L (3.7-5.1); SODIUM 143 mMol/L (135-145)
--- NOTE | 2016-12-07 05:07 | NUR ---
Significant Event: PATIENT IS A/O X3 BUT FORGETFUL. VSS. HR 50-70'S. SBP 140-150'S. AFEBRILE. 02 SATS IN MID 90'S ON RA. NO C/O PAIN. LUNGS CLEAR THROUGHOUT. UP WITH 1A WITH WALKER/GB. C/O UPSET STOMACH AND LOOSE STOOLS. HELD COLACE AND GAVE IVP ZOFRAN X1 WITH RELIEF. VOIDS PER RESTROOM. IV TO LEFT FOREARM SL. NASAL PACKING TO LEFT NARE INTACT. Follow up: CONTINUE TO MONITOR. [facility] HOME THURSDAY?
--- NOTE | 2016-12-07 17:59 | NUR ---
Significant Event: VSS ON RA. AMBULATE TODAY IN [place] WITH RN AND THERAPY X3, 1PA WITH WALKER AND GAIT BELT. LEFT NARE REMAINS PACKED WITHOUT COMPLICATIONS. KCL 40MEQ PO TO BE GIVEN TOTAL OF 2 DOSES TODAY FOR K+ 3.3. NO ARRHYTHMIAS NOTED. VOIDS ADEQ AMT PER BATHROOM WITH NO BM TODAY. Follow up: [facility] HOME TOMORROW.
--- NOTE | 2016-12-08 04:52 | NUR ---
Significant Event: PATIENT IS A/O X3 BUT FORGETFUL. VSS. HR 50-60'S. SBP 150-160'S. AFEBRILE. 02 SATS IN MID 90'S ON RA. NO C/O PAIN. LUNGS CLEAR THROUHGOUT. UP WITH 1A WITH WALKER/GB. VOIDS PER RESTROOM. IV TO LEFT FOREARM SL. Follow up: CONTINUE TO MONITOR. [facility] HOME TODAY?
[2016-12-08 05:16] LABS: ANION GAP 9.8 (10.0-19.0); BLOOD UREA NITROGEN 14 mg/dL (6-24); CALCIUM 8.2 mg/dL (8.5-10.5); CHLORIDE 107 mMol/L (96-110); CO2 29 mMol/L (22-32); CREATININE 0.7 mg/dL (0.5-1.1); ESTIMATED GFR (MDRD EQUATION) > 60; MAGNESIUM 2.3 mg/dL (1.8-2.6); POTASSIUM 3.8 mMol/L (3.7-5.1); SODIUM 142 mMol/L (135-145)
[2016-12-08] MEDS ORDERED: COLACE100 MG PO (10:58)
[2016-12-08] MEDS ORDERED: PRINIVIL (ZESTRI5 MG PO (10:59)
[2016-12-08] MEDS ORDERED: LOPRESSOR50 MG PO (11:00)
[2016-12-08] MEDS ORDERED: BACTROBAN N1 GM/TUBE TOP (11:03)
[2016-12-08] MEDS ORDERED: OCEAN NASAL) (A44 ML NOSE (11:07)
--- NOTE | 2016-12-08 12:09 | NUR ---
Social visit with patient and daughter today. I explained that Dr Tijerina is wanting patient to have [facility] on discharge. They feel this is a good idea. I did give the the home health options. They would like [facility]. I called and spoke with Rose and gave referral information. Referral informaton faxed. Patient will be discharged later today with [facility].
--- NOTE | 2016-12-08 17:49 | NUR ---
D:At 0720, Dr. Medrano was in to see patient. Took packing out. Talked to patient about not picking nose, no blowing of the nose. Don't use Q-Tips to put medicine in nose. Assisted withBactroban application- use finger tip and put in just past bottom of nose.Did have to reinforce this to patient several times. This was, also, reviewed with daughters.
--- NOTE | 2016-12-18 14:17 | NUR ---
12/04/16 Introduced self and purpose of heart healthy education. Calendar given, information reviewed, verbalized understanding.
== END 2016-12-08 14:05 | disposition home health service (06) | DRG 308 ==
LOC: GPCU 14:47 → GICU 12-05 08:55 → GPCU 12-06 17:23
PROVIDERS: Internal Medicine; Internal Medicine Interventional Cardiology; Nurse Practitioner; ADMIT Family Medicine
PROC: B221YZZ Computerized Tomography (CT Scan) of Multiple Coronary Arteries using Other Contrast (ICD-10-PCS; principal; 2016-12-05)
PROC: 3E04317 Introduction of Other Thrombolytic into Central Vein, Percutaneous Approach (ICD-10-PCS; 2016-12-05)
PROC: 2Y41X5Z Packing of Nasal Region using Packing Material (ICD-10-PCS; 2016-12-05)
DX: I47.2 Ventricular tachycardia (principal); I63.9 Cerebral infarction, unspecified; I71.00 Dissection of unspecified site of aorta; R47.01 Aphasia; R04.0 Epistaxis; I71.9 Aortic aneurysm of unspecified site, without rupture; R47.81 Slurred speech; R29.810 Facial weakness; I10 Essential (primary) hypertension; K59.09 Other constipation; M81.0 Age-related osteoporosis without current pathological fracture; E78.5 Hyperlipidemia, unspecified; R41.81 Age-related cognitive decline; I25.10 Atherosclerotic heart disease of native coronary artery without angina pectoris; M15.9 Polyosteoarthritis, unspecified; Z95.1 Presence of aortocoronary bypass graft
CPT/HCPCS: A9270; G0378; J2405; J2997; J7030; J7040; J7050; Q9967